=== PATIENT | male | born 1990 | race African-American/Black ===

== ENCOUNTER 2022-08-17 18:42 | Observation (INO) | payer MEDICAID, SELFPAY ==
[2022-08-17 18:44] VITALS: BP 146/80; PULSE 59; RESP 18; TEMP 36.3; O2SAT 99; BMI 25.9
--- NOTE | 2022-08-17 19:10 | EX.ED.SAOD ---
HPI History of Present Illness Chief Complaint: Substance Abuse Narrative Narrative: 32-year-old male presents for detox from fentanyl. He states he usually smokes or snorts opiates/fentanyl. His last use was this morning before he went to the doctor. He states that his primary care provider urged him to go for detox. He has never been through detox or rehabilitation in the past. He states he has been using as much as he can, as often as he can over the last few weeks. He has had a problem with addiction over the last 6 years on and off. Over the last few days, he did experience nausea and vomiting along with abdominal cramping when he did not use, but once again last snorted fentanyl this morning. He denies any suicidal ideation. He denies other significant past medical history. PFSH PFSH Home Medications Seroquel 100 mg PO.IVFORM QHS 08/17/22 [History Last Taken Unknown] Suboxone 8 mg PO.IVFORM BID 08/17/22 [History Last Taken Unknown] clonidine 0.1 mg PO.IVFORM TID 08/17/22 [History Last Taken Unknown] Allergy/AdvReac Type Severity Reaction Status Date / Time No Known Allergies Allergy Verified 08/17/22 18:56 Social History Smoking Status: Current every day smoker tobacco type: cigarettes ROS ROS ED ROS Narrative Constitutional: No fever, no chills. HEENT: No sore throat. No neck pain. No loss of vision. No rhinorrhea. Cardiovascular: No chest pain. No palpitations. No pedal edema. Respiratory: No cough, no shortness of breath. Abdominal: No abdominal pain. No nausea. No vomiting. None currently as he just use this morning. Genitourinary: No dysuria. No hematuria. Musculoskeletal: No myalgias. No arthralgias. Neurologic: No headaches. No dizziness. No lightheadedness. Skin: No rash. No change in color. Psychiatric: No depression. No anxiety. No suicidal ideation. EXAM Physical Exam Narrative Exam Narrative: Afebrile. Vital signs noted. HEENT: Normocephalic. Atraumatic. PERRL, EOMI. Neck soft and supple. No point tenderness or step off. Cardiovascular: Regular rate and rhythm. No murmurs, rubs, or gallops appreciated. Respiratory: No tachypnea. Lungs clear to auscultation bilaterally. Gastrointestinal: Abdomen soft, nontender, with normoactive bowel sounds. No rebound or guarding. Neurological: Awake. Alert. Nonfocal, nonlateralizing. Skin: No rash. Normal color. No pallor. Musculoskeletal: No pedal edema. Full range of motion extremities. Psychiatric: Denies suicidal ideation. No active hallucination. Const Vital Signs: 08/17/22 18:44 Temperature 97.4 F L Temperature Source Temporal Pulse Rate 59 L Respiratory Rate 18 Blood Pressure 146/80 H Blood Pressure Mean 102 Pulse Ox 99 Oxygen Delivery Method Room Air MDM MDM MDM Narrative Medical decision making narrative: I reviewed his medication list, and he does reportedly take clonidine, Seroquel, and Suboxone, but it is unknown when he last took those substances. Medical screening labs will be obtained. I discussed patient with Dr. Vazquez, the hospitalist for admission. I reviewed the patient's medical screening laboratory work, he has an elevated white count of 12.6 which I think is nonspecific, hemoglobin normal at 15.9, hematocrit 45.9, platelet count normal at 331, potassium slightly low at 3.4 which can be replaced orally. Glucose appropriately elevated 86. Urine for drugs of abuse is positive for cannabinoids, but he states he is using fentanyl as well. Ethyl alcohol negative. Patient was discussed with Dr. Vazquez. Patient will be admitted for detox to the general medical floor. Disposition is admit in stable condition. History & Record Review Discussion w/independent historian: Patient Additional record(s) reviewed:: Prior outpatient record Lab Data Attestation: I reviewed the patient's lab results. Labs: Laboratory Results - last 24 hr 08/17/22 08/17/22 08/17/22 19:20 19:20 19:20 WBC 12.6 H RBC 5.12 Hgb 15.9 Hct 45.9 MCV 89.6 MCH 31.1 MCHC 34.6 RDW Std Deviation 39.3 RDW Coeff of Liz 11.9 Plt Count 331 MPV 9.9 Immature Gran % (Auto) 0.200 Neut % (Auto) 56.0 Lymph % (Auto) 33.5 [place] % (Auto) 9.5 Eos % (Auto) 0.1 Baso % (Auto) 0.7 Absolute Neuts (auto) 7.0 Absolute Lymphs (auto) 4.21 Nucleated RBC % 0 Sodium 140 Potassium 3.4 L Chloride 104 Carbon Dioxide 30.0 Anion Gap 6 BUN 9 Creatinine 0.93 Estim Creat Clear Calc 127.48 Est GFR (MDRD) Af Amer 122 Est GFR (MDRD) Non-Af 101 BUN/Creatinine Ratio 9.7 L Glucose 86 Calcium 9.7 Total Bilirubin 0.60 AST 34 ALT 60 Alkaline Phosphatase 71 Total Protein 8.6 H Albumin 4.6 Globulin 4.0 Albumin/Globulin Ratio 1.2 Urine Opiates Screen Urine Methadone Screen Ur Barbiturates Screen Ur Phencyclidine Scrn Ur Amphetamines Screen MDMA (Ecstasy) Screen U Benzodiazepines Scrn Urine Cocaine Screen U Cannabinoids Screen Ur Drug Screen Comment Ethyl Alcohol < 3.0 08/17/22 19:20 WBC RBC Hgb Hct MCV MCH MCHC RDW Std Deviation RDW Coeff of Liz Plt Count MPV Immature Gran % (Auto) Neut % (Auto) Lymph % (Auto) [place] % (Auto) Eos % (Auto) Baso % (Auto) Absolute Neuts (auto) Absolute Lymphs (auto) Nucleated RBC % Sodium Potassium Chloride Carbon Dioxide Anion Gap BUN Creatinine Estim Creat Clear Calc Est GFR (MDRD) Af Amer Est GFR (MDRD) Non-Af BUN/Creatinine Ratio Glucose Calcium Total Bilirubin AST ALT Alkaline Phosphatase Total Protein Albumin Globulin Albumin/Globulin Ratio Urine Opiates Screen NEGATIVE Urine Methadone Screen NEGATIVE Ur Barbiturates Screen NEGATIVE Ur Phencyclidine Scrn NEGATIVE Ur Amphetamines Screen NEGATIVE MDMA (Ecstasy) Screen NEGATIVE U Benzodiazepines Scrn NEGATIVE Urine Cocaine Screen NEGATIVE U Cannabinoids Screen POSITIVE H Ur Drug Screen Comment Ethyl Alcohol Discharge Plan Dx/Rx/DC Orders Clinical Impression: Desire for detoxification, Opiate dependence, Cannabis abuse Disposition Disposition: Acute Care Hospital [facility]
[2022-08-17 19:32] LABS: Absolute Lymphocyte Count 4.21 X10^3/uL (0.83-4.51); Basophil# 0.09 X10^3/uL; Basophil% 0.7 % (0-1); Eosinophil# 0.01 X10^3/uL; Eosinophils% 0.1 % (0-5); Hematocrit 45.9 % (40-54); Hemoglobin 15.9 g/dL (13.0-16.5); Lymphocyte # 4.21 X10^3/ul (0.83-4.51); Lymphocyte % 33.5 % (19-41); Mean Corp Hgb Conc 34.6 g/dL (32-36); Mean Corpuscular Hgb 31.1 pg (27.0-32.0); Mean Corpuscular Volume 89.6 fL (80-94); Mean Platelet Vol. 9.9 fl (6.2-12.0); Monocyte# 1.19 X10^3/uL; Monocyte% 9.5 % (0-10); NRBC Flagged by Analyzer 0 % (0-5); Neutrophil # 7.04 X10^3/uL (2.7-7.7); Platelet Count 331 K/mm3 (150-450); RBC Distribution Width CV 11.9 % (11.6-14.6); RBC Distribution Width SD 39.3 fl (35.1-43.9); Red Blood Count 5.12 M/mm3 (4.6-6.2); White Blood Count 12.6 K/mm3 (4.4-11.0)
[2022-08-17 19:51] LABS: ALB/GLOB Ratio 1.2 RATIO (0.9-2.4); AST(SGOT) 34 U/L (15-37); Alanine Aminotransfer ALT/SGPT 60 U/L (16-61); Albumin, Serum 4.6 g/dL (3.2-5.0); Alkaline Phosphatase 71 U/L (45-117); Anion Gap 6 (5-15); BUN 9 mg/dL (7-18); BUN/Creat Ratio 9.7 RATIO (10-20); Calcium,Total 9.7 mg/dL (8.5-10.1); Chloride 104 mmol/L (98-107); Creatinine, Serum 0.93 mg/dL (0.70-1.30); EST Glomerular Filtration Rate 101 mL/min (>60); Est Glom Filt Rate - Afr Amer 122 mL/min (>60); Estimated Creatinine Clearance 127.48 ml/min; Glucose 86 mg/dL (74-106); Potassium 3.4 mmol/L (3.5-5.1); Protein, Total 8.6 g/dL (6.4-8.2); Sodium Level 140 mmol/L (136-145)
[2022-08-17 20:14] LABS: Amphetamine Urine VISTA NEGATIVE (<1000 ng/mL); Barbiturate Urine VISTA NEGATIVE (< 200 ng/mL); Benzodiazepine Urine VISTA NEGATIVE (< 200 ng/mL); Cocaine Urine VISTA NEGATIVE (< 300 ng/mL); Ecstacy Urine VISTA NEGATIVE (< 500 ng/mL); Methadone Urine VISTA NEGATIVE (< 300 ng/mL); PCP Urine VISTA NEGATIVE (< 25 ng/mL); THC Urine VISTA POSITIVE (< 50 ng/mL); Vista UDS pH Range 6
[2022-08-17 20:15] LABS: Alcohol, Blood (Medical)-Serum < 3.0 mg/dL
--- NOTE | 2022-08-17 22:00 | HP.PCM_ITS ---
[facility] - General General Date of Admission: 08/17/22 Date of Service: 08/17/22 Chief Complaint: Requesting support for withdrawal from fentanyl HPI Narrative KB GARCÍA, is a 32 M who presents to the emergency room with chief complaint of fentanyl abuse. Patient has a significant history of 6 years of drug abuse and has gone through rehab several times. Patient states his significant other has found out she is and now he is motivated to go through rehab. He saw his primary care physician this morning who advised he should seek inpatient withdrawal support. Currently the patient denies any chest pain, shortness of breath, fever or chills, nausea, vomiting or diarrhea and denies dizziness. He will be admitted to the general medical floor and placed on opiate withdrawal protocol and case management consulted for support postdischarge. [facility] Home Medications Seroquel 100 mg PO.IVFORM QHS 08/17/22 [History Last Taken Unknown] Suboxone 8 mg PO.IVFORM BID 08/17/22 [History Last Taken Unknown] clonidine 0.1 mg PO.IVFORM TID 08/17/22 [History Last Taken Unknown] Allergy/AdvReac Type Severity Reaction Status Date / Time No Known Allergies Allergy Verified 08/17/22 18:56 Social History Smoking Status: Current every day smoker tobacco type: cigarettes ROS Constitutional Constitutional: Denies chills or fatigue Eyes Eyes: Denies blurry vision ENT HEENT: Denies abnormal hearing Cardiovascular Cardiovascular: Denies chest pain Respiratory/Chest Respiratory/Chest: Denies cough Gastrointestinal Gastrointestinal: Denies abdominal pain Genitourinary Genitourinary: Denies dysuria Musculoskeletal Musculoskeletal: Denies back pain Integumentary Integumentary: Denies dry skin Neurologic Neurologic: Denies abnormal gait Psychiatric Psychiatric: Reports anxiety Vital Signs Vital Signs Vital Signs: 08/17/22 18:44 Temperature 97.4 F L Temperature Source Temporal Pulse Rate 59 L Respiratory Rate 18 Blood Pressure 146/80 H Blood Pressure Mean 102 Pulse Ox 99 Oxygen Delivery Method Room Air Weight Weight: 190 lb 14.4 oz Body Mass Index (BMI) 25.9 Physical Exam Const alert, oriented x3, no apparent distress and well nourished HEENT normocephalic and head/scalp atraumatic Eyes EOMs intact bilaterally Neck no lymphadenopathy Lymph Lymphatic: no lymphadenopathy noted Resp normal respiratory effort, normal air movement and clear to auscultation bilaterally Cardio regular rate, regular rhythm, S1 normal heart sound and S2 normal heart sound Extremity normal capillary refill Skin General Skin Exam: no breakdown Neuro no focal motor deficits and no sensory deficits noted Speech: speech normal Psych Appearance: appropriate Mood & Affect: anxious Results Lab / Micro Data Result Diagrams: 08/17/22 19:20 08/17/22 19:20 Labs: Laboratory Results - last 24 hr 08/17/22 19:20: WBC 12.6 H, RBC 5.12, Hgb 15.9, Hct 45.9, MCV 89.6, MCH 31.1, MCHC 34.6, RDW Std Deviation 39.3, RDW Coeff of Liz 11.9, Plt Count 331, MPV 9.9, Immature Gran % (Auto) 0.200, Neut % (Auto) 56.0, Lymph % (Auto) 33.5, [place] % (Auto) 9.5, Eos % (Auto) 0.1, Baso % (Auto) 0.7, Absolute Neuts (auto) 7.0, Absolute Lymphs (auto) 4.21, Nucleated RBC % 0 08/17/22 19:20: Sodium 140, Potassium 3.4 L, Chloride 104, Carbon Dioxide 30.0, Anion Gap 6, BUN 9, Creatinine 0.93, Estim Creat Clear Calc 127.48, Est GFR (MDRD) Af Amer 122, Est GFR (MDRD) Non-Af 101, BUN/Creatinine Ratio 9.7 L, Glucose 86, Calcium 9.7, Total Bilirubin 0.60, AST 34, ALT 60, Alkaline Phosphatase 71, Total Protein 8.6 H, Albumin 4.6, Globulin 4.0, Albumin/Globulin Ratio 1.2 08/17/22 19:20: Ethyl Alcohol < 3.0 08/17/22 19:20: Urine Opiates Screen NEGATIVE, Urine Methadone Screen NEGATIVE, Ur Barbiturates Screen NEGATIVE, Ur Phencyclidine Scrn NEGATIVE, Ur Amphetamines Screen NEGATIVE, MDMA (Ecstasy) Screen NEGATIVE, U Benzodiazepines Scrn NEGATIVE, Urine Cocaine Screen NEGATIVE, U Cannabinoids Screen POSITIVE H, Ur Drug Screen Comment Assessment & Plan Assessment/Plan (1) Desire for detoxification: (2) Opiate dependence: (3) Cannabis abuse: PLAN: Plan 1 opiate withdrawal?admit patient to general medical floor, start opiate withdrawal protocol, consult case management for discharge planning. Encourage patient to continue complete cessation of all illicit drugs. 2. Cannabis abuse?encouraged cessation 3. DVT prophylaxis?would add SCDs if patient becomes nonambulatory Charges/Coding Visit Charges OBSV E&M: 56474 Observ/hosp same date L2
--- NOTE | 2022-08-17 22:01 | CM.ED ---
Social Work SW spoke with patient about Ramp program and provided support. Ramp coordinator notified. Paola Deras [employer] SALES REPRESENTATIVE, BOAT REPAIRER
[2022-08-17] MEDS: Potassium Chloride Oral Tablet 20 MEQ 40 MEQ PO (22:06)
[2022-08-17 22:15] VITALS: BP 128/78; PULSE 66; RESP 16; TEMP 36.8; O2SAT 97
[2022-08-17 23:19] VITALS: BMI 24.2
[2022-08-17 23:20] VITALS: BP 101/45; PULSE 54; RESP 17; TEMP 36.4; O2SAT 94
[2022-08-18] MEDS: QUEtiapine 100 MG Tablet PO ×2 (00:22→22:39)
[2022-08-18 06:15] VITALS: BP 115/71; PULSE 94; RESP 16; TEMP 36.5; O2SAT 99
--- NOTE | 2022-08-18 07:20 | PCM.PN.HOSP ---
Reason for Visit Reason for Visit: Diagnoses Opioid dependence, uncomplicated (08/17/22) Cannabis abuse, uncomplicated (08/17/22) Subjective Subjective Patient is a 32-year-old male with a history of opioid dependence admitted for acute opioid withdrawal Objective Data Objective Data Vital Signs: Vital Signs Temp Pulse Resp BP Pulse Ox O2 Del Method 97.7 F L 94 16 115/71 99 Room Air 08/18/22 06:15 08/18/22 06:15 08/18/22 06:15 08/18/22 06:15 08/18/22 06:15 08/18/22 06:15 Oxygen Delivery Method Room Air Weight: 81 kg Body Mass Index (BMI) 24.2 Intake & Output: Intake and Output for Last 24 Hours 08/16/22 08/17/22 08/18/22 23:59 23:59 23:59 Intake Total 400 / 400 Balance 400 / 400 Lab / Micro Data Result Diagrams: 08/17/22 19:20 08/17/22 19:20 Labs: Laboratory Results - last 24 hr 08/17/22 19:20: WBC 12.6 H, RBC 5.12, Hgb 15.9, Hct 45.9, MCV 89.6, MCH 31.1, MCHC 34.6, RDW Std Deviation 39.3, RDW Coeff of Liz 11.9, Plt Count 331, MPV 9.9, Immature Gran % (Auto) 0.200, Neut % (Auto) 56.0, Lymph % (Auto) 33.5, [place] % (Auto) 9.5, Eos % (Auto) 0.1, Baso % (Auto) 0.7, Absolute Neuts (auto) 7.0, Absolute Lymphs (auto) 4.21, Nucleated RBC % 0 08/17/22 19:20: Sodium 140, Potassium 3.4 L, Chloride 104, Carbon Dioxide 30.0, Anion Gap 6, BUN 9, Creatinine 0.93, Estim Creat Clear Calc 127.48, Est GFR (MDRD) Af Amer 122, Est GFR (MDRD) Non-Af 101, BUN/Creatinine Ratio 9.7 L, Glucose 86, Calcium 9.7, Total Bilirubin 0.60, AST 34, ALT 60, Alkaline Phosphatase 71, Total Protein 8.6 H, Albumin 4.6, Globulin 4.0, Albumin/Globulin Ratio 1.2 08/17/22 19:20: Ethyl Alcohol < 3.0 08/17/22 19:20: Urine Opiates Screen NEGATIVE, Urine Methadone Screen NEGATIVE, Ur Barbiturates Screen NEGATIVE, Ur Phencyclidine Scrn NEGATIVE, Ur Amphetamines Screen NEGATIVE, MDMA (Ecstasy) Screen NEGATIVE, U Benzodiazepines Scrn NEGATIVE, Urine Cocaine Screen NEGATIVE, U Cannabinoids Screen POSITIVE H, Ur Drug Screen Comment Physical Exam Narrative GENERAL: cooperative HEENT: Atraumatic; normocephalic EYES; Anicteric, Normal Conjunctiva NECK; supple, normal thyroid, RESPIRATORY: Diminished to auscultation CARDIOVASCULAR: Regular S1 S2, GI: soft, normoactive bowel sounds, : No Renal angle tenderness; EXTREMITIES: No edema, no clubbing, MUSCULOSKELETAL: no muscle wasting NEURO: Awake; no lateralizing signs. SKIN: No Rash PSYCH; Flat affect Assessment & Plan Assessment/Plan (1) Desire for detoxification: PLAN: Plan Patient is a 32-year-old male with a history of opioid dependence admitted for acute opioid withdrawal 1. 1. Acute opioid withdrawal - Patient has been admitted to regular nursing floor, managed buprenorphine taper along with other adjunctive medications for medical stabilization 2. Cannabis use ? Counseled on cessation 3. DVT prophylaxis ? Low risk did encourage early ambulation Time spent in the patient's overall evaluation,decision-making process, review of diagnostic data, adjustment of management, discussion with other providers, nursing nursing and ancillary staff involved in patient's care documentation, 35 minutes Charges/Coding Visit Charges Inpatient E&M: 05899 [facility] L2
[2022-08-18 08:30] VITALS: BP 131/84; PULSE 62; RESP 18; TEMP 37.2; O2SAT 100
[2022-08-18] MEDS: cloNIDine HCl 0.1 MG Tablet PO ×2 (11:41→22:39)
[2022-08-18] MEDS: hydrOXYzine PAM 25 MG Capsule 50 MG PO ×2 (11:41→20:06)
[2022-08-18] MEDS: Methocarbamol 750 MG Tablet 1500 MG PO ×2 (11:41→20:06)
--- NOTE | 2022-08-18 11:44 | ADDICTION ---
This report writer met with PT to conduct ASAM, MSE, AUDIT, DUDIT assessments and to plan for d/c. PT A+Ox4 and participated actively. All assessments completed and placed in PT's chart. PT plans to f/u with [facility] for follow-up Outpatient treatment services on 08/21. Pt did not identify a need for transportation.
[2022-08-18 14:30] VITALS: BP 109/59; PULSE 55; RESP 18; TEMP 36.7; O2SAT 99
--- NOTE | 2022-08-18 15:44 | CHAPLAIN ---
Type of Pastoral Visit _x__ Initial Visit ___ Follow-up Visit ___ On-call Visit ___ General Patient Visit ___ Spiritual Assessment ___ Family Conference ___ Bereavement ___ Rapid Response ___ Code Blue ___ Other (describe below) Pastoral Care Referral From ___ Patient ___ Family ___ Nurse ___ Physician ___ Protocol Manager ___ Inventory Worker ___ Other (describe below) Sacrament/Intervention ___ Active listening ___ Anointing ___ Sikhism ___ Bereavement ___ Communion ___ Liseth exploration ___ ___ Life review ___ Prayer ___ Reconciliation ___ Sacrament of Sick ___ Supportive presence ___ Wedding ___ Other (describe below) Pastoral Comments patient is having his vitals taken but he is trying to sleep; pt asks for this thimble press operator to return tomorrow as he is too tired to talk now
[2022-08-18 19:53] VITALS: BP 139/81; PULSE 52; RESP 18; TEMP 36.4; O2SAT 98
[2022-08-18] MEDS: Ondansetron 8 MG Tablet PO (20:06)
[2022-08-18] MEDS: Dicyclomine 10 MG Capsule 20 MG PO (20:06)
[2022-08-18 22:34] VITALS: BP 130/82; PULSE 55
[2022-08-18] MEDS: Buprenorphine HCl 2 MG TAB.SUBL 4 MG SL (22:39)
[2022-08-19 03:08] VITALS: BP 113/68; PULSE 48; RESP 18; TEMP 36.4; O2SAT 100
[2022-08-19] MEDS: Buprenorphine HCl 2 MG TAB.SUBL 4 MG SL (03:11)
--- NOTE | 2022-08-19 07:30 | PCM.PN.HOSP ---
Reason for Visit Reason for Visit: Diagnoses Opioid dependence, uncomplicated (08/17/22) Cannabis abuse, uncomplicated (08/17/22) Subjective Subjective Patient seen. Tolerating this Subutex taper well so far. Patient did express a desire to be discharged home Objective Data Objective Data Vital Signs: Vital Signs Temp Pulse Resp BP Pulse Ox O2 Del Method 97.6 F L 48 L 18 113/68 100 Room Air 08/19/22 03:08 08/19/22 03:08 08/19/22 03:08 08/19/22 03:08 08/19/22 03:08 08/19/22 03:08 Oxygen Delivery Method Room Air Weight: 81 kg Body Mass Index (BMI) 24.2 Intake & Output: Intake and Output for Last 24 Hours 08/17/22 08/18/22 08/19/22 23:59 23:59 23:59 Intake Total 400 / 400 1000 / 1000 Balance 400 / 400 1000 / 1000 Lab / Micro Data Result Diagrams: 08/17/22 19:20 08/17/22 19:20 Physical Exam Narrative GENERAL: cooperative HEENT: Atraumatic; normocephalic EYES; Anicteric, Normal Conjunctiva NECK; supple, normal thyroid, RESPIRATORY: Diminished to auscultation CARDIOVASCULAR: Regular S1 S2, GI: soft, normoactive bowel sounds, : No Renal angle tenderness; EXTREMITIES: No edema, no clubbing, MUSCULOSKELETAL: no muscle wasting NEURO: Awake; no lateralizing signs. SKIN: No Rash PSYCH; Flat affect Assessment & Plan Assessment/Plan (1) Opiate dependence: PLAN: Patient is a 32-year-old male with a history of opioid dependence admitted for acute opioid withdrawal 1.? Acute opioid withdrawal - Patient has been admitted to regular nursing floor,? managed? buprenorphine taper along with other adjunctive medications for medical stabilization ?08/19/2022. Plan is to continue with current buprenorphine taper 2.? Cannabis use ? Counseled on cessation 3.? DVT prophylaxis ? Low risk did encourage early ambulation Time spent in the patient's overall evaluation,decision-making process, review of diagnostic data, adjustment of management, discussion with other providers, nursing nursing and ancillary staff involved in patient's care documentation, 25 minutes Charges/Coding Visit Charges Inpatient E&M: 28739 [facility] Hosp L1
[2022-08-19] MEDS: Methocarbamol 750 MG Tablet 1500 MG PO (07:59)
[2022-08-19] MEDS: cloNIDine HCl 0.1 MG Tablet PO (07:59)
[2022-08-19 08:05] VITALS: BP 125/82; PULSE 52; RESP 18; TEMP 36.8; O2SAT 100
--- NOTE | 2022-08-19 09:11 | PCM.DC.SUM ---
Providers Date of Admission: 08/17/22 Date of Discharge: 08/19/22 Primary Care Physician: Bon Chandra Reason For Visit: DESIRE FOR DETOXF FROM [facility] Diagnosis Discharge Diagnosis (1) Opiate dependence: Status: Acute Code(s): F11.20 - Opioid dependence, uncomplicated Plan: Patient is a 32-year-old male with a history of opioid dependence admitted for acute opioid withdrawal 1.? Acute opioid withdrawal - Patient has been admitted to regular nursing floor,? managed? buprenorphine taper along with other adjunctive medications for medical stabilization ?08/19/2022. Plan is to continue with current buprenorphine taper ? 08/19/2022 patient elected to sign out AGAINST MEDICAL ADVICE 2.? Cannabis use ? Counseled on cessation 3.? DVT prophylaxis ? Low risk did encourage early ambulation Time spent in the patient's overall evaluation,decision-making process, review of diagnostic data, adjustment of management, discussion with other providers, nursing nursing and ancillary staff involved in patient's care documentation, 25 minutes Medications at Discharge Home Medications Seroquel 100 mg PO.IVFORM QHS 08/17/22 Suboxone 8 mg PO.IVFORM BID 08/17/22 clonidine 0.1 mg PO.IVFORM TID 08/17/22 Hospital Course Summary of Care Provided Minutes Spent on Discharge: 25 Weight / BMI Weight Weight: 81 kg Body Mass Index (BMI) 24.2 ABG / Lab / Microbiology Data Result Diagrams: 08/17/22 19:20 08/17/22 19:20 Meaningful Use Info Meaningful Use Diagnoses (Choose all that apply): None applicable Discharge Plan Admission Admit Date/Time: 08/17/22 23:13 Attending Provider: Golden Strickland Primary Care Provider: Bon Chandra Consulting Providers: Manjinder Vazquez Discharge Orders/Prescriptions Prescriptions: No Action Seroquel 100 mg PO.IVFORM QHS Suboxone 8 mg PO.IVFORM BID clonidine 0.1 mg PO.IVFORM TID Referrals / Follow Up: Bon Chandra [Primary Care Provider] - In 1 Week Disposition Disposition (needs filled in before D/C Order can be placed): Against Medical Advice Charges/Coding Visit Charges Inpatient E&M: [id number] [facility]osp
== END 2022-08-19 09:15 | disposition left against medical advice (07) | DRG 770 ==
LOC: ED 22:09 → MS3 08-18 07:03
PROVIDERS: Admitting Provider Family Medicine; Emergency Provider Emergency Medicine; Visit Provider Internal Medicine
DX: F11.23 Opioid dependence with withdrawal (principal); F12.10 Cannabis abuse, uncomplicated; F17.210 Nicotine dependence, cigarettes, uncomplicated
CPT/HCPCS: 80053; 80307; 82077; 85025; 99221; 99283; G0378